=== PATIENT | male | born 1970 | race Caucasian/White ===

== ENCOUNTER 2018-09-22 17:31 | Inpatient (IN) | payer BC ==
[~2018-09-22] VITALS: Ht 188 cm; Wt 94.8 kg
[2018-09-22 18:10] VITALS: BP 116/81
[2018-09-22] MEDS ORDERED: guaiFENesin DM 200MG/20MG 10 ML SYRUP PO PRN (19:00)
[2018-09-22] MEDS ORDERED: ZOLPIDEM 5 MG TABLET. PO PRN (19:00)
[2018-09-22] MEDS ORDERED: OMEP40CA5 PO (19:14)
[2018-09-22] MEDS ORDERED: TRAM50TA PO (19:14)
[2018-09-22] MEDS ORDERED: METH500T7 PO (19:14)
[2018-09-22] MEDS ORDERED: BENZ-8 PO (19:14)
[2018-09-22] MEDS ORDERED: NABU500T PO (19:14)
[2018-09-22] MEDS ORDERED: IPRA3AMP29 NEB (19:14)
[2018-09-22] MEDS ORDERED: FEXO1TAB31 PO (19:14)
[2018-09-22] MEDS ORDERED: TRAZ-86 PO (19:14)
[2018-09-22] MEDS ORDERED: ALBU2.5V8 INH (19:14)
[2018-09-22 19:29] LABS: BASO # 0.1 x10^3/uL (0.0-0.2); BASO % 1 % (0-3); EOS # 1.4 x10^3/uL (0.0-0.7); EOS % 13 % (0-3); HEMATOCRIT 38.7 % (39.0-53.0); HEMOGLOBIN 13.2 g/dL (13.0-17.5); LYMPH # 1.3 x10^3/uL (1.0-4.8); LYMPH % 12 % (24-48); MEAN CORPUSCULAR HEMOGLOBIN 31 pg (25-35); MEAN CORPUSCULAR HGB CONC 34 g/dL (31-37); MEAN CORPUSCULAR VOLUME 91 fL (79-100); MONO # 0.8 x10^3/uL (0.0-1.1); MONO % 7 % (0-9); NEUT # 7.3 x10^3uL (1.8-7.7); NEUT % 67 % (31-73); PLATELET COUNT 326 x10^3/uL (140-400); RED BLOOD COUNT 4.27 x10^6/uL (4.30-5.70); WHITE BLOOD COUNT 10.9 x10^3/uL (4.0-11.0)
[2018-09-22] MEDS ORDERED: AZITHROMYCIN 250 MG TABLET. PO ONE (19:30)
[2018-09-22 20:40] LABS: ALBUMIN 2.7 g/dL (3.4-5.0); ALBUMIN/GLOBULIN RATIO 0.6 (1.0-1.7); CALCIUM 8.7 mg/dL (8.5-10.1); CREATININE 0.9 mg/dL (0.7-1.3); GFR 89.3; POTASSIUM 3.6 mmol/L (3.5-5.1); TOTAL BILIRUBIN 0.3 mg/dL (0.2-1.0); TOTAL PROTEIN 7.1 g/dL (6.4-8.2)
[2018-09-22] MEDS: IPRATRPIUM/ALBUTEROL 0.5/2.5MG 3 ML NEBU. NEB SCH (21:08)
[2018-09-22] MEDS ORDERED: BENZONATATE 100 MG CAPSULE. PO PRN (21:30)
[2018-09-22] MEDS ORDERED: traZODone 100 MG TABLET. PO SCH (21:30)
[2018-09-22] MEDS ORDERED: ALBUTEROL SULFATE 2.5 MG/3 ML NEBU. INH PRN (21:30)
[2018-09-22] MEDS: traZODone 100 MG TABLET. PO SCH (21:31)
[2018-09-22] MEDS: PANTOPRAZOLE 40 MG TABLET. PO SCH (21:31)
[2018-09-22 21:50] LABS: BACTERIA,URINE FEW /HPF (0-FEW); BILIRUBIN,URINE NEG (NEG); CLARITY,URINE HAZY; COLOR,URINE AMBER; GLUCOSE,URINE NEG (NEG); NITRITE,URINE NEG (NEG); RBC,URINE 0 /HPF (0-2); SQUAMOUS EPITHELIAL CELL,UR OCC /LPF; UROBILINOGEN,URINE 0.2 mg/dL (0.2 mg/dL); WBC,URINE 0 /HPF (0-4)
[2018-09-22] MEDS: HEPARIN for SUB-Q USE 5,000 UNIT/ML VIAL. SQ SCH (21:59)
[2018-09-22 23:05] VITALS: BP 101/61
[2018-09-23] MEDS: IV NORMAL SALINE 1,000ML 1,000 ML IV SCH ×3 (02:54→18:56)
[2018-09-23 05:35] VITALS: BP 103/66
[2018-09-23] MEDS: METHOCARBAMOL 500 MG TABLET PO SCH ×3 (05:47→21:28)
[2018-09-23] MEDS: IPRATRPIUM/ALBUTEROL 0.5/2.5MG 3 ML NEBU. NEB SCH ×4 (05:50→21:30)
[2018-09-23] MEDS: HEPARIN for SUB-Q USE 5,000 UNIT/ML VIAL. SQ SCH ×3 (05:51→21:25)
--- NOTE | 2018-09-23 06:11 | EKG ---
[address] [address] Test Date: 2018-09-23 Test Time: 06:01:30 Pat Name: MELANIE WINCHESTER Department: Room: 119 A Gender: M Apprentice Lineman Third Step: : 1970 Requested By: ALLISON DELGADO Order Number: [id number] Reading MD: Stefan Rose Measurements Intervals Muddy Rate: 105 P: 35 FL: 160 QRS: 31 QRSD: 74 T: -5 QT: 350 QTc: 467 Interpretive Statements SINUS TACHYCARDIA Electronically Signed On 10-16-2018 12:03:26 CDT by Stefan Rose
[2018-09-23 06:20] LABS: BASO # 0.2 x10^3/uL (0.0-0.2); BASO % 2 % (0-3); EOS # 1.4 x10^3/uL (0.0-0.7); EOS % 20 % (0-3); HEMATOCRIT 36.6 % (39.0-53.0); HEMOGLOBIN 12.6 g/dL (13.0-17.5); LYMPH # 1.4 x10^3/uL (1.0-4.8); LYMPH % 20 % (24-48); MEAN CORPUSCULAR HEMOGLOBIN 31 pg (25-35); MEAN CORPUSCULAR HGB CONC 34 g/dL (31-37); MEAN CORPUSCULAR VOLUME 90 fL (79-100); MONO # 0.6 x10^3/uL (0.0-1.1); MONO % 8 % (0-9); NEUT # 3.5 x10^3uL (1.8-7.7); NEUT % 49 % (31-73); PLATELET COUNT 304 x10^3/uL (140-400); RED BLOOD COUNT 4.05 x10^6/uL (4.30-5.70); RED CELL DISTRIBUTION WIDTH 12.6 % (11.5-14.5)
[2018-09-23 06:29] LABS: CALCIUM 8.2 mg/dL (8.5-10.1); CREATININE 0.9 mg/dL (0.7-1.3); GFR 89.3; POTASSIUM 3.8 mmol/L (3.5-5.1)
[2018-09-23] MEDS ORDERED: CONTRAST GIVEN MC PRN (06:45)
[2018-09-23] MEDS ORDERED: IOHEXOL 350 MG/ML 100 ML VIAL. IV ONE (07:00)
--- NOTE | 2018-09-23 07:45 | RAD ---
Chest, 2 views, 09/23/2018: HISTORY: Pneumonia No previous chest radiographs are available at this time for comparison purposes. The heart is within normal limits in size. There are patchy bilateral pulmonary opacities suggesting infiltrates and/or scarring. No pleural fluid is seen. A spinal stimulator lead extends into the lower thoracic spinal canal. IMPRESSION: Moderate patchy bilateral pulmonary infiltrates compatible with pneumonia. Electronically signed by: Zeke Gallagher MD (09/23/2018 7:42 AM) [facility]
[2018-09-23] MEDS ORDERED: IPRATRPIUM/ALBUTEROL 0.5/2.5MG 3 ML NEBU. NEB SCH (08:00)
--- NOTE | 2018-09-23 08:19 | RAD ---
Chest CTA History: Shortness of air for 3 weeks, elevated d-dimer Technique: After bolus of intravenous contrast, CT imaging was performed of the chest. Multiplanar reconstruction images to include MIP reconstruction images are submitted. Exposure: One or more of the following individualized dose reduction techniques were utilized for this examination: 1. Automated exposure control 2. Adjustment of the mA and/or kV according to patient size 3. Use of iterative reconstruction technique. Comparison: None Findings: [ ] No pulmonary embolism is identified. There is no pleural pericardial effusion or pneumothorax. There is moderate to severe emphysema. There are fairly prominent multifocal infiltrates of the lower lobes bilaterally somewhat greater on the left and also of the upper lobes greater on the left. There is bilateral hilar lymphadenopathy, largest right hilar node about 1.6 cm short axis dimension and on the left about 1.5 cm short axis dimension. There are some enlarged mediastinal nodes, largest left paratracheal node about 1.1 cm short axis dimension. Thoracic aortic caliber is within normal limits without intraluminal flap. There is probable hepatic steatosis. There is thoracic spinal stimulator lead terminating near T7-8. Impression: 1. No pulmonary embolism is identified. 2. There are multifocal infiltrates bilaterally for which short-term follow-up after treatment advised such as within 2 months. There is emphysema. 3. There is nonspecific bilateral hilar as well as mediastinal lymphadenopathy also for which attention on follow-up advised. Electronically signed by: Jesus Alberto Miller MD (09/23/2018 8:16 AM) [id number]
[2018-09-23] MEDS: predniSONE 20 MG TABLET PO SCH (08:42)
[2018-09-23] MEDS: CETIRIZINE HCL 10 MG TABLET PO SCH ×2 (08:43→21:28)
[2018-09-23] MEDS: LACTOBACILLUS RHAMNOSUS GG 1 CAPSULE. PO SCH ×2 (08:43→21:27)
[2018-09-23] MEDS: PANTOPRAZOLE 40 MG TABLET. PO SCH (08:43)
[2018-09-23] MEDS: PSEUDOEPHEDRINE ER 120 MG TABLET.ER. PO SCH ×2 (08:44→21:27)
[2018-09-23] MEDS: MELOXICAM 7.5 MG TABLET PO SCH (08:44)
[2018-09-23] MEDS: traMADol 50 MG TABLET PO PRN ×2 (08:59→17:17)
[2018-09-23] MEDS ORDERED: PIP/TAZO PER PHARMACY MC PRN (10:00)
[2018-09-23] MEDS ORDERED: PIPERACILLIN/TAZOBACTAM 4.5 GM in IV NORMAL SALINE 50ML 50 ML IV SCH ×2 (10:00→12:00)
[2018-09-23 10:45] VITALS: BP 107/71
[2018-09-23] MEDS ORDERED: VANCOMYCIN 2 GM in IV NORMAL SALINE 500ML 500 ML IV ONE (11:00)
[2018-09-23] MEDS: VANCOMYCIN PER PHARMACY MC PRN (12:42)
[2018-09-23 15:35] VITALS: BP 110/69
[2018-09-23] MEDS: VANCOMYCIN 1.5 GM in IV NORMAL SALINE 500ML 500 ML IV SCH (18:57)
[2018-09-23 19:12] VITALS: BP 108/65
[2018-09-23] MEDS ORDERED: AZITHROMYCIN 250 MG TABLET. PO SCH (21:00)
[2018-09-23] MEDS: PIPERACILLIN/TAZOBACTAM 4.5 GM in IV NORMAL SALINE 50ML 50 ML IV SCH (21:28)
[2018-09-23] MEDS: traZODone 100 MG TABLET. PO SCH (21:28)
[2018-09-23 22:47] VITALS: BP 105/70
[2018-09-24] MEDS: IPRATRPIUM/ALBUTEROL 0.5/2.5MG 3 ML NEBU. NEB SCH ×5 (01:33→19:28)
[2018-09-24] MEDS: PIPERACILLIN/TAZOBACTAM 4.5 GM in IV NORMAL SALINE 50ML 50 ML IV SCH ×4 (02:36→22:01)
[2018-09-24] MEDS: VANCOMYCIN 1.5 GM in IV NORMAL SALINE 500ML 500 ML IV SCH ×2 (04:11→11:00)
--- NOTE | 2018-09-24 04:19 | PN ---
DATE: 09/23/2018 SUBJECTIVE: The patient is resting fairly comfortably, although his pulse still has been running on the high side, approximately 115 or so. Oxygen saturation was 94%. Blood pressure is stable. The patient's labs are still not really demonstrative of the type of infection. This gentleman has a C-reactive protein, was elevated at 30. The procalcitonin is still pending. He failed an outpatient therapy for approximately almost 2 weeks with oral antibiotics before coming in. He works at the [employer] and consequently has been exposed to a wide variety of other disease causing agents. PHYSICAL EXAMINATION: GENERAL: Otherwise, the patient is alert and oriented. LUNGS: Diminished throughout, poor movement of air, but clear. CARDIOVASCULAR: Regular sinus rhythm, tachycardic. ABDOMEN: Protuberant, soft, nontender. NEUROLOGIC: Intact. IMPRESSION: Sepsis, pneumonia, unspecified etiology. PLAN: Continue to monitor the patient. Continue on IV antibiotic therapy, multilobar pneumonia for that matter. Mediastinal lymphadenopathy. Continue with the vancomycin and piperacillin for now. ALLISON DELGADO MD DR: JULIO/zehra JOB#: [id number] / [id number]
[2018-09-24 05:52] VITALS: BP 126/71
[2018-09-24] MEDS: METHOCARBAMOL 500 MG TABLET PO SCH ×3 (06:18→21:44)
[2018-09-24] MEDS: HEPARIN for SUB-Q USE 5,000 UNIT/ML VIAL. SQ SCH ×3 (06:18→22:05)
[2018-09-24] MEDS: IV NORMAL SALINE 1,000ML 1,000 ML IV SCH ×2 (06:18→11:50)
[2018-09-24] MEDS: CETIRIZINE HCL 10 MG TABLET PO SCH ×2 (08:29→21:46)
[2018-09-24] MEDS: MELOXICAM 7.5 MG TABLET PO SCH (08:29)
[2018-09-24] MEDS: LACTOBACILLUS RHAMNOSUS GG 1 CAPSULE. PO SCH ×2 (08:29→21:45)
[2018-09-24] MEDS: predniSONE 20 MG TABLET PO SCH (08:29)
[2018-09-24] MEDS: PANTOPRAZOLE 40 MG TABLET. PO SCH (08:29)
[2018-09-24] MEDS: traMADol 50 MG TABLET PO PRN ×2 (08:32→21:45)
[2018-09-24] MEDS: PSEUDOEPHEDRINE ER 120 MG TABLET.ER. PO SCH ×2 (08:33→21:00)
--- NOTE | 2018-09-24 10:12 | RAD ---
Chest, 2 views, 09/24/2018: HISTORY: Pneumonia Comparison is made to yesterday's study. The heart size is normal. Moderate patchy bilateral pulmonary infiltrates appear unchanged. There is underlying bullous emphysema. There is no evidence of pleural fluid or pneumothorax. A spinal stimulator lead extends into the lower thoracic spinal canal. IMPRESSION: 1. Emphysema. 2. Moderate unchanged patchy bilateral pulmonary infiltrates suggesting pneumonia. Electronically signed by: Zeke Gallagher MD (09/24/2018 10:09 AM) [facility]
[2018-09-24 10:40] VITALS: BP 119/76
[2018-09-24] MEDS: VANCOMYCIN PER PHARMACY MC PRN (13:46)
[2018-09-24] MEDS ORDERED: VANCOMYCIN 1.5 GM in IV NORMAL SALINE 500ML 500 ML IV SCH (15:00)
[2018-09-24 15:09] VITALS: BP 118/72
[2018-09-24 20:23] VITALS: BP 122/76
[2018-09-24] MEDS: traZODone 100 MG TABLET. PO SCH (21:45)
[2018-09-24 23:41] VITALS: BP 95/63
[2018-09-25] MEDS: IV NORMAL SALINE 1,000ML 1,000 ML IV SCH (00:27)
--- NOTE | 2018-09-25 03:19 | PN ---
DATE: 09/24/2018 SUBJECTIVE: A 48-year-old in with bilateral lobe pneumonia, feeling somewhat better, looks like combination of antibiotics has helped him. We will go ahead and continue to monitor him. He is going to have a PICC line placed and then we are going to go and have probably outpatient therapy for at least another week to 10 days. 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 OBJECTIVE: GENERAL: The patient is alert and oriented. He is more active. VITAL SIGNS: Blood pressure 120/70, respiratory rate 20, pulse is still over 100 to 110, temperature 98.1. HEENT: Head atraumatic, normocephalic. Eyes: PERRLA without jaundice. LUNGS: Diminished throughout, but improved. CARDIOVASCULAR: Regular sinus rhythm, tachycardic. ABDOMEN: Soft, nontender. NEUROLOGICAL: Intact. PLAN: We will go ahead and continue to monitor the patient accordingly. Continue with IV antibiotic therapy. IMPRESSION: Pneumonia, bilateral lobe maybe institutionally obtained. He does work in one of the [employer] and may have accumulated there. ALLISON DELGADO MD DR: JULIO/zehra JOB#: [id number] / [id number]
[2018-09-25] MEDS: PIPERACILLIN/TAZOBACTAM 4.5 GM in IV NORMAL SALINE 50ML 50 ML IV SCH ×2 (03:29→08:27)
[2018-09-25] MEDS: IPRATRPIUM/ALBUTEROL 0.5/2.5MG 3 ML NEBU. NEB SCH ×2 (04:54→10:52)
[2018-09-25] MEDS: METHOCARBAMOL 500 MG TABLET PO SCH (05:35)
[2018-09-25] MEDS: HEPARIN for SUB-Q USE 5,000 UNIT/ML VIAL. SQ SCH (05:35)
[2018-09-25 05:55] VITALS: BP 114/75
[2018-09-25] MEDS: PANTOPRAZOLE 40 MG TABLET. PO SCH (08:26)
[2018-09-25] MEDS: LACTOBACILLUS RHAMNOSUS GG 1 CAPSULE. PO SCH (08:26)
[2018-09-25] MEDS: CETIRIZINE HCL 10 MG TABLET PO SCH (08:27)
[2018-09-25] MEDS: MELOXICAM 7.5 MG TABLET PO SCH (08:27)
[2018-09-25] MEDS: PSEUDOEPHEDRINE ER 120 MG TABLET.ER. PO SCH (08:27)
[2018-09-25] MEDS: predniSONE 20 MG TABLET PO SCH (08:28)
[2018-09-25] MEDS ORDERED: PRED1TAB PO (09:57)
[2018-09-25] MEDS ORDERED: CEFE1VIA5 IJ (09:57)
[2018-09-25] MEDS ORDERED: CEFEPIME HCL 1 GM in IV NORMAL SALINE 50ML 50 ML IV ONE (10:30)
[2018-09-25] MEDS ORDERED: Influenza vaccine per PROTOCOL. MC PRN (10:30)
--- NOTE | 2018-09-30 12:32 | DS ---
DATE OF DISCHARGE: 09/25/2018 HOSPITAL COURSE: A 48-year-old male in with a problem of recurrent pneumonia who has been treated as an outpatient; however, he was unsuccessful. He continued to have problems and as a result of this, the patient was admitted to the hospital. He had bilateral lobe pneumonia and as a result of this, the patient was admitted to the hospital, given IV vancomycin and Zosyn. The patient made excellent recovery with those 2. He was running a temperature and a pulse of over 120 at times. He made good progress. He will follow up with a neurodiagnostic tech as well as making further evaluation on him as indicated. Otherwise, the patient made good progress. He will be discharged home. Follow up as an outpatient. IMPRESSION: Multi-lobe pneumonia, community acquired and sepsis, mediastinal lymphadenopathy. Continue with IV antibiotic therapy and make further evaluation on him as indicated per those results. ALLISON DELGADO MD DR: JULIO/zehra JOB#: [id number] / [id number]
== END 2018-09-25 11:25 | disposition home or self-care (01) | DRG 871 ==
LOC: 1 SOUTH 17:55
PROVIDERS: ADMIT Family Medicine; ATTEND Family Medicine
DX: A41.9 Sepsis, unspecified organism (principal); J18.1 Lobar pneumonia, unspecified organism
CPT/HCPCS: 36415; 71046; 71275; 80048; 80053; 80202; 81001; 83605; 84145; 85025; 85379; 86140; 86738; 87040; 93005; 94640; J0456; J0692; J0696; J1644; J2543; J3370; J7040; J7512; J7620; Q9967; J7030

== ENCOUNTER 2018-10-02 14:04 | Inpatient (IN) | payer BC ==
[~2018-10-02] VITALS: Ht 182.9 cm; Wt 98.6 kg
[~2018-10-02 14:04] MED LIST: ALBU2.5V8 INH; BENZ-8 PO; CEFE1VIA5 IJ; FEXO1TAB31 PO; IPRA3AMP29 NEB; METH500T7 PO; NABU500T PO; OMEP40CA5 PO; PRED1TAB PO; TRAM50TA PO; TRAZ-86 PO
[2018-10-02 14:26] VITALS: BP 134/88
[2018-10-02] MEDS ORDERED: IPRATRPIUM/ALBUTEROL 0.5/2.5MG 3 ML NEBU. ONE (14:36)
[2018-10-02] MEDS ORDERED: IV NORMAL SALINE 1,000ML 1,000 ML IV SCH ×2 (14:43→17:13)
[2018-10-02] MEDS ORDERED: ONDANSETRON PF 4 MG/2 ML VIAL. IV PRN (14:45)
[2018-10-02 14:55] LABS: BASO # 0.1 x10^3/uL (0.0-0.2); BASO % 1 % (0-3); EOS # 0.5 x10^3/uL (0.0-0.7); EOS % 4 % (0-3); HEMATOCRIT 39.7 % (39.0-53.0); HEMOGLOBIN 13.5 g/dL (13.0-17.5); LYMPH # 0.6 x10^3/uL (1.0-4.8); LYMPH % 5 % (24-48); MEAN CORPUSCULAR HEMOGLOBIN 31 pg (25-35); MEAN CORPUSCULAR HGB CONC 34 g/dL (31-37); MEAN CORPUSCULAR VOLUME 90 fL (79-100); MONO # 0.8 x10^3/uL (0.0-1.1); MONO % 6 % (0-9); NEUT # 11.6 x10^3uL (1.8-7.7); NEUT % 85 % (31-73); PLATELET COUNT 389 x10^3/uL (140-400); RED BLOOD COUNT 4.42 x10^6/uL (4.30-5.70); RED CELL DISTRIBUTION WIDTH 12.7 % (11.5-14.5); WHITE BLOOD COUNT 13.6 x10^3/uL (4.0-11.0)
[2018-10-02 15:10] LABS: ALBUMIN 2.5 g/dL (3.4-5.0); ALBUMIN/GLOBULIN RATIO 0.5 (1.0-1.7); CALCIUM 8.4 mg/dL (8.5-10.1); GFR 79.1; MAGNESIUM 1.9 mg/dL (1.8-2.4); POTASSIUM 3.3 mmol/L (3.5-5.1); TOTAL BILIRUBIN 0.4 mg/dL (0.2-1.0); TOTAL PROTEIN 7.9 g/dL (6.4-8.2)
[2018-10-02] MEDS ORDERED: PIP/TAZO PER PHARMACY MC PRN (15:30)
[2018-10-02] MEDS ORDERED: VANCOMYCIN PER PHARMACY MC PRN (15:30)
[2018-10-02] MEDS ORDERED: ELECTROLYTE (NON-ICU) PROTOCOL MC PRN (15:45)
[2018-10-02] MEDS ORDERED: POTASSIUM CHLORIDE 20 MEQ TABLET.ER. PO ONE (15:45)
[2018-10-02] MEDS: IV NORMAL SALINE 1,000ML 1,000 ML IV SCH ×2 (15:58→18:30)
[2018-10-02] MEDS: ACETAMINOPHEN 325 MG TABLET PO PRN (15:59)
[2018-10-02] MEDS ORDERED: VANCOMYCIN 2 GM in IV NORMAL SALINE 500ML 500 ML IV ONE (16:00)
[2018-10-02] MEDS ORDERED: ALBUTEROL SULFATE 2.5 MG/3 ML NEBU. NEB PRN (16:00)
[2018-10-02] MEDS ORDERED: traMADol 50 MG TABLET PO PRN ×2 (16:00→17:45)
[2018-10-02] MEDS: methylPREDNISolone SOD SUCC PF 125 MG/2 ML VIAL. IV SCH ×2 (16:10→21:48)
--- NOTE | 2018-10-02 16:23 | RAD ---
CT of the chest without contrast, 10/02/2018: HISTORY: Follow-up pneumonia Noncontrast scans were obtained and compared to a study from 09/23/2018. There are large air-containing cysts in both lungs compatible with emphysema. There are moderate patchy bilateral pulmonary infiltrates represent a combination of airspace and interstitial disease. These pulmonary opacities have progressed since 09/23/2018. The findings suggest worsening pneumonia. There is a probable underlying component of scarring. Mild bilateral hilar and mediastinal adenopathy appears unchanged. The heart size is normal. There is no evidence of pleural fluid. A linear radiopacity in the thoracic spinal canal probably represents a spinal stimulator lead. There are mild scattered degenerative changes in the spine. IMPRESSION: 1. Worsening moderate patchy bilateral pulmonary infiltrates superimposed upon emphysema. 2. Unchanged mild mediastinal and bilateral hilar adenopathy. PQRS Compliance Statement: One or more of the following individualized dose reduction techniques were utilized for this examination: 1. Automated exposure control 2. Adjustment of the mA and/or kV according to patient size 3. Use of iterative reconstruction technique Electronically signed by: Zeke Gallagher MD (10/02/2018 4:19 PM) [facility]
[2018-10-02] MEDS: VANCOMYCIN PER PHARMACY MC PRN (16:28)
[2018-10-02] MEDS: IPRATRPIUM/ALBUTEROL 0.5/2.5MG 3 ML NEBU. NEB SCH ×2 (16:54→20:19)
[2018-10-02] MEDS ORDERED: NABUMETONE 500 MG PO SCH (17:00)
[2018-10-02] MEDS: PIPERACILLIN/TAZOBACTAM 4.5 GM in IV NORMAL SALINE 50ML 50 ML IV SCH (17:25)
[2018-10-02 19:38] VITALS: BP 138/83
[2018-10-02] MEDS: BENZONATATE 100 MG CAPSULE. PO PRN (20:04)
[2018-10-02] MEDS: LACTOBACILLUS RHAMNOSUS GG 1 CAPSULE. PO SCH (20:04)
[2018-10-02] MEDS: traZODone 100 MG TABLET. PO SCH (20:05)
[2018-10-02] MEDS ORDERED: CETIRIZINE HCL 10 MG TABLET PO SCH (21:00)
[2018-10-02] MEDS ORDERED: PSEUDOEPHEDRINE ER 120 MG TABLET.ER. PO SCH (21:00)
[2018-10-02] MEDS: HEPARIN for SUB-Q USE 5,000 UNIT/ML VIAL. SQ SCH (21:43)
[2018-10-02] MEDS: METHOCARBAMOL 500 MG TABLET PO SCH (21:44)
[2018-10-02 22:14] VITALS: BP 124/81
[2018-10-03] MEDS: VANCOMYCIN 1.5 GM in IV NORMAL SALINE 500ML 500 ML IV SCH ×2 (03:27→15:58)
[2018-10-03] MEDS: methylPREDNISolone SOD SUCC PF 125 MG/2 ML VIAL. IV SCH ×2 (05:08→20:31)
[2018-10-03] MEDS: PIPERACILLIN/TAZOBACTAM 4.5 GM in IV NORMAL SALINE 50ML 50 ML IV SCH ×5 (05:09→17:12)
[2018-10-03] MEDS: METHOCARBAMOL 500 MG TABLET PO SCH ×3 (05:09→21:29)
[2018-10-03] MEDS: HEPARIN for SUB-Q USE 5,000 UNIT/ML VIAL. SQ SCH ×3 (05:10→21:30)
[2018-10-03 05:45] VITALS: BP 109/69
[2018-10-03] MEDS: IPRATRPIUM/ALBUTEROL 0.5/2.5MG 3 ML NEBU. NEB SCH ×4 (06:02→20:04)
[2018-10-03] MEDS: BENZONATATE 100 MG CAPSULE. PO PRN ×3 (06:07→21:31)
[2018-10-03 06:27] LABS: BGAS PH 7.47 (7.35-7.46)
[2018-10-03 06:33] LABS: BASO % 0 % (0-3); EOS % 0 % (0-3); HEMATOCRIT 36.4 % (39.0-53.0); HEMOGLOBIN 12.4 g/dL (13.0-17.5); LYMPH # 0.9 x10^3/uL (1.0-4.8); LYMPH % 8 % (24-48); MEAN CORPUSCULAR HEMOGLOBIN 31 pg (25-35); MEAN CORPUSCULAR HGB CONC 34 g/dL (31-37); MEAN CORPUSCULAR VOLUME 90 fL (79-100); MONO # 0.6 x10^3/uL (0.0-1.1); MONO % 5 % (0-9); NEUT # 10.5 x10^3uL (1.8-7.7); NEUT % 87 % (31-73); PLATELET COUNT 368 x10^3/uL (140-400); RED BLOOD COUNT 4.03 x10^6/uL (4.30-5.70)
[2018-10-03 06:50] LABS: ALBUMIN 2.1 g/dL (3.4-5.0); ALBUMIN/GLOBULIN RATIO 0.4 (1.0-1.7); CALCIUM 8.2 mg/dL (8.5-10.1); CREATININE 0.9 mg/dL (0.7-1.3); GFR 89.3; POTASSIUM 3.9 mmol/L (3.5-5.1); TOTAL BILIRUBIN 0.3 mg/dL (0.2-1.0); TOTAL PROTEIN 7.2 g/dL (6.4-8.2)
[2018-10-03] MEDS: MELOXICAM 7.5 MG TABLET PO SCH (08:16)
[2018-10-03] MEDS: CETIRIZINE HCL 10 MG TABLET PO SCH (08:16)
[2018-10-03] MEDS: PANTOPRAZOLE 40 MG TABLET. PO SCH (08:16)
[2018-10-03] MEDS: LACTOBACILLUS RHAMNOSUS GG 1 CAPSULE. PO SCH ×2 (08:16→20:29)
[2018-10-03] MEDS: PSEUDOEPHEDRINE ER 120 MG TABLET.ER. PO PRN (08:31)
[2018-10-03] MEDS: IV NORMAL SALINE 1,000ML 1,000 ML IV SCH (08:41)
[2018-10-03] MEDS: traMADol 50 MG TABLET PO PRN ×2 (08:58→21:28)
[2018-10-03] MEDS ORDERED: NON FORMULARY ITEM (Fexofenadine/Pseudoephedrine (Allegra-D 24 Hour Tablet) 1 TAB) PO SCH (09:00)
[2018-10-03 10:39] VITALS: BP 128/78
[2018-10-03] MEDS ORDERED: predniSONE 20 MG TABLET PO SCH (11:00)
[2018-10-03] MEDS ORDERED: IPRATRPIUM/ALBUTEROL 0.5/2.5MG 3 ML NEBU. NEB SCH (12:00)
--- NOTE | 2018-10-03 12:38 | PN ---
DATE: 10/03/2018 SUBJECTIVE: A 48-year-old gentleman in with bilateral lobe pneumonia relapse. He had been on cefepime as an outpatient; however, got increasingly worse. He was brought back and he is doing better in the last 24 hours, transfer him to his core fitter in [place], Dr. Berry. Family decided not to be transferred any case, he is doing better. OBJECTIVE: VITAL SIGNS: Blood pressure 128/70, respiratory rate 20, pulse 103. He is presently afebrile. Did have a low-grade temperature of 99. Pulses come down from 120, so he has improved. His oxygen saturation is moved up from 90% to anywhere up to 96% on room air, feeding breathing treatments, low dose prednisone as well as some obviously vancomycin and Zosyn, which seems to be helping much better than they should. GENERAL: Not in any case, the patient is alert and oriented, says he is feeling better. LUNGS: Diminished, somewhat expiratory wheezes, but markedly improved from where they were. NEUROLOGIC: Alert and oriented. CARDIOVASCULAR: Tachycardic, but stable. ABDOMEN: Soft, nontender. The patient denies any chest pain or shortness of breath presently. He does have dyspnea when he does walk. I will continue to monitor. IMPRESSION: Sepsis, bilateral lobe pneumonia, emphysema, mediastinal lymphadenopathy. Told family will need to follow up with his core fitter eventually even if it as an outpatient. Again, they refused to be transferred. ALLISON DELGADO MD DR: JULIO/zehra JOB#: [id number] / [id number]
[2018-10-03 15:50] VITALS: BP 128/75
[2018-10-03 19:30] VITALS: BP 144/78
[2018-10-03] MEDS: ACETAMINOPHEN 325 MG TABLET PO PRN (20:29)
[2018-10-03] MEDS: traZODone 100 MG TABLET. PO SCH (20:30)
[2018-10-03 23:38] VITALS: BP 129/78
[2018-10-04] MEDS: PIPERACILLIN/TAZOBACTAM 4.5 GM in IV NORMAL SALINE 50ML 50 ML IV SCH ×4 (00:08→17:18)
[2018-10-04 04:29] LABS: VANC TR 7.6 mcg/mL (10.0-20.0)
[2018-10-04] MEDS: VANCOMYCIN 1.5 GM in IV NORMAL SALINE 500ML 500 ML IV SCH ×3 (04:30→21:07)
[2018-10-04] MEDS: IPRATRPIUM/ALBUTEROL 0.5/2.5MG 3 ML NEBU. NEB SCH ×4 (04:53→19:35)
[2018-10-04] MEDS: METHOCARBAMOL 500 MG TABLET PO SCH ×3 (06:05→21:39)
[2018-10-04] MEDS: HEPARIN for SUB-Q USE 5,000 UNIT/ML VIAL. SQ SCH ×3 (06:06→21:40)
[2018-10-04] MEDS: traMADol 50 MG TABLET PO PRN ×2 (06:27→18:06)
[2018-10-04] MEDS: IV NORMAL SALINE 1,000ML 1,000 ML IV SCH ×2 (06:28→20:50)
[2018-10-04 06:42] VITALS: BP 131/85
[2018-10-04] MEDS: CETIRIZINE HCL 10 MG TABLET PO SCH (07:39)
[2018-10-04] MEDS: BENZONATATE 100 MG CAPSULE. PO PRN ×2 (07:39→18:06)
[2018-10-04] MEDS: PANTOPRAZOLE 40 MG TABLET. PO SCH (07:39)
[2018-10-04] MEDS: methylPREDNISolone SOD SUCC PF 125 MG/2 ML VIAL. IV SCH ×2 (07:39→21:08)
[2018-10-04] MEDS: PSEUDOEPHEDRINE ER 120 MG TABLET.ER. PO PRN (07:39)
[2018-10-04] MEDS: MELOXICAM 7.5 MG TABLET PO SCH (07:39)
[2018-10-04] MEDS: LACTOBACILLUS RHAMNOSUS GG 1 CAPSULE. PO SCH ×2 (07:40→21:05)
[2018-10-04] MEDS: VANCOMYCIN PER PHARMACY MC PRN (07:47)
[2018-10-04] MEDS ORDERED: IOHEXOL 350 MG/ML 100 ML VIAL. IV ONE (09:45)
[2018-10-04 11:08] VITALS: BP 125/77
--- NOTE | 2018-10-04 13:48 | RAD ---
CTA OF THE CHEST WITH AND WITHOUT CONTRAST Clinical indications: Shortness of breath. Positive d-dimer. Technique: Noncontrast axial localizer was performed. After IV infusion of 90 cc of Omnipaque 350, helical CT scanning of the chest was performed using the CT pulmonary embolism protocol. A coronal MIP reconstruction was generated. PQRS compliance Statement One or more of the following individualized dose reduction techniques were utilized for this study: 1. Automated exposure control 2. Adjustment of the mA and/or kV according to patient size 3. Use of iterative reconstruction technique Comparison: Chest CTA dated September 23, 2018. Chest CT without contrast dated October 02, 2018 Findings: No pulmonary embolism is evident. No focal aneurysmal dilatation or dissection of the thoracic aorta is seen. Mediastinal and hilar lymph nodes are again evident and are unchanged. The heart size is normal. No pericardial effusion is seen. Small left-sided pleural effusion is now evident. No right-sided pleural effusion is seen. Again seen are bilateral confluent lung infiltrates which have not changed significantly from October 02, 2018. Bullous emphysema is seen bilaterally. No pneumothorax is seen. Proximal bronchial tree is patent. No adrenal mass is evident. No lytic process is seen. IMPRESSION: No pulmonary embolism. No change in consolidative lung infiltrates bilaterally since October 02, 2018. There is a new small left-sided pleural effusion. No change in the mediastinal or hilar lymph nodes. Electronically signed by: Otoniel Murphy MD (10/04/2018 1:45 PM) [facility]
[2018-10-04] MEDS ORDERED: CONTRAST GIVEN MC PRN (14:45)
[2018-10-04 14:48] VITALS: BP 148/89
--- NOTE | 2018-10-04 17:43 | PN ---
DATE: 10/04/2018 SUBJECTIVE: A 48-year-old male with bilateral lobe pneumonia, refused to be transferred out to the situation noted in [place] with his flight communications operator, but he is doing much better this morning, feels better. The patient's sed rate was about 100/100. He continues to make good progress. He is afebrile, presently bringing up green mucus, sputum cultures are still pending. Hopefully, we can get a good culture on that. OBJECTIVE: VITAL SIGNS: Blood pressure 130/80, respiratory rate 20, pulse 85, oxygen saturation anywhere from 91-98%. The patient is receiving breathing treatments. GENERAL: Alert and oriented, much stronger. LUNGS: Show expiratory wheezes occasionally squeak. CARDIOVASCULAR: Regular sinus rhythm. ABDOMEN: Soft, nontender. EXTREMITIES: No clubbing, cyanosis or edema. NEUROLOGIC: The patient is alert and oriented x 3. Discussed with him and his . IMPRESSION: Bilateral lobe pneumonia, positive D-dimer. PLAN: We will go ahead and do a CTA just to be on the safe side, make further evaluation on his pneumonia of unspecified etiology as well as community-acquired bilateral lobe pneumonia and dyspnea. ALLISON DELGADO MD DR: JULIO/zehra JOB#: [id number] / [id number]
[2018-10-04 19:10] VITALS: BP 132/77
[2018-10-04] MEDS: traZODone 100 MG TABLET. PO SCH (21:05)
[2018-10-04] MEDS: ACETAMINOPHEN 325 MG TABLET PO PRN (21:05)
[2018-10-04 22:51] VITALS: BP 122/73
[2018-10-05] MEDS: PIPERACILLIN/TAZOBACTAM 4.5 GM in IV NORMAL SALINE 50ML 50 ML IV SCH ×5 (01:08→23:27)
[2018-10-05] MEDS: traMADol 50 MG TABLET PO PRN ×3 (01:19→20:25)
[2018-10-05] MEDS: VANCOMYCIN 1.5 GM in IV NORMAL SALINE 500ML 500 ML IV SCH ×3 (04:48→20:22)
[2018-10-05] MEDS: IPRATRPIUM/ALBUTEROL 0.5/2.5MG 3 ML NEBU. NEB SCH ×4 (04:56→20:16)
[2018-10-05 05:00] LABS: VANC TR 17.2 mcg/mL (10.0-20.0)
[2018-10-05 05:30] VITALS: BP 127/86
[2018-10-05] MEDS: HEPARIN for SUB-Q USE 5,000 UNIT/ML VIAL. SQ SCH ×3 (06:17→20:39)
[2018-10-05] MEDS: METHOCARBAMOL 500 MG TABLET PO SCH ×3 (06:17→20:25)
[2018-10-05] MEDS: LACTOBACILLUS RHAMNOSUS GG 1 CAPSULE. PO SCH ×2 (08:33→20:23)
[2018-10-05] MEDS: CETIRIZINE HCL 10 MG TABLET PO SCH (08:33)
[2018-10-05] MEDS: MELOXICAM 7.5 MG TABLET PO SCH (08:33)
[2018-10-05] MEDS: PANTOPRAZOLE 40 MG TABLET. PO SCH (08:33)
[2018-10-05] MEDS: methylPREDNISolone SOD SUCC PF 125 MG/2 ML VIAL. IV SCH ×2 (08:34→20:23)
[2018-10-05] MEDS: BENZONATATE 100 MG CAPSULE. PO PRN ×3 (08:38→20:23)
[2018-10-05] MEDS: IV NORMAL SALINE 1,000ML 1,000 ML IV SCH ×2 (10:10→20:25)
[2018-10-05] MEDS: VANCOMYCIN PER PHARMACY MC PRN (10:59)
[2018-10-05 11:00] VITALS: BP 141/89
[2018-10-05 16:37] VITALS: BP 151/87
[2018-10-05 19:09] VITALS: BP 159/92
[2018-10-05] MEDS: traZODone 100 MG TABLET. PO SCH (20:25)
[2018-10-05 23:32] VITALS: BP 149/86
--- NOTE | 2018-10-06 00:35 | PN ---
DATE: SUBJECTIVE: Multilobar pneumonia, severe emphysema, CTA was negative for clot, has mediastinal and hilar lymphadenopathy, bullous emphysema. OBJECTIVE: VITAL SIGNS: Blood pressure 127/86, respirations 22, pulse 80, good oxygen saturation anywhere from 91% to 92%. The patient says he is feeling better, walking, but still very weak overall, says his pneumonia still is there. Sputums are still pending. The patient has had a relapse before, once at home and IV antibiotic therapy. We will continue to monitor him accordingly here. For now, continue with IV antibiotic. He is on Zosyn and vancomycin. GENERAL: The patient is alert and oriented. LUNGS: Diminished, but clear than they have been. CARDIOVASCULAR: Regular sinus rhythm, S1, S2. ABDOMEN: Soft, nontender. We will go ahead and continue to monitor accordingly. Continue on IV antibiotic therapy. IMPRESSION: Bilateral lobe pneumonia, organism unspecified, otherwise bullous emphysema, mediastinal lymphadenopathy. PLAN: Continue with IV antibiotic therapy, aggressive pulmonary toilet. ALLISON DELGADO MD DR: JULIO/zehra JOB#: [id number] / [id number]
[2018-10-06] MEDS: PIPERACILLIN/TAZOBACTAM 4.5 GM in IV NORMAL SALINE 50ML 50 ML IV SCH ×2 (04:44→12:23)
[2018-10-06] MEDS: BENZONATATE 100 MG CAPSULE. PO PRN ×2 (04:44→13:29)
[2018-10-06] MEDS: METHOCARBAMOL 500 MG TABLET PO SCH ×2 (04:45→13:29)
[2018-10-06] MEDS: HEPARIN for SUB-Q USE 5,000 UNIT/ML VIAL. SQ SCH ×2 (04:46→13:37)
[2018-10-06 05:03] LABS: VANC TR 18.3 mcg/mL (10.0-20.0)
[2018-10-06 05:19] VITALS: BP 138/86
[2018-10-06] MEDS: VANCOMYCIN 1.5 GM in IV NORMAL SALINE 500ML 500 ML IV SCH ×2 (05:27→13:29)
[2018-10-06] MEDS: IPRATRPIUM/ALBUTEROL 0.5/2.5MG 3 ML NEBU. NEB SCH ×2 (05:31→09:18)
[2018-10-06] MEDS: methylPREDNISolone SOD SUCC PF 125 MG/2 ML VIAL. IV SCH (08:18)
[2018-10-06] MEDS: CETIRIZINE HCL 10 MG TABLET PO SCH (08:21)
[2018-10-06] MEDS: MELOXICAM 7.5 MG TABLET PO SCH (08:22)
[2018-10-06] MEDS: PANTOPRAZOLE 40 MG TABLET. PO SCH (08:22)
[2018-10-06] MEDS: traMADol 50 MG TABLET PO PRN (08:22)
[2018-10-06] MEDS: LACTOBACILLUS RHAMNOSUS GG 1 CAPSULE. PO SCH (08:23)
[2018-10-06] MEDS ORDERED: FUROSEMIDE 40 MG/4 ML VIAL IVP ONE (08:45)
[2018-10-06 09:10] LABS: CALCIUM 8.5 mg/dL (8.5-10.1); CREATININE 1.1 mg/dL (0.7-1.3); GFR 70.9; POTASSIUM 3.9 mmol/L (3.5-5.1)
[2018-10-06 09:23] LABS: BASO % 0 % (0-3); EOS % 0 % (0-3); HEMATOCRIT 36.2 % (39.0-53.0); HEMOGLOBIN 12.1 g/dL (13.0-17.5); LYMPH # 1.3 x10^3/uL (1.0-4.8); LYMPH % 9 % (24-48); MEAN CORPUSCULAR HEMOGLOBIN 30 pg (25-35); MEAN CORPUSCULAR HGB CONC 33 g/dL (31-37); MEAN CORPUSCULAR VOLUME 91 fL (79-100); MONO # 0.5 x10^3/uL (0.0-1.1); MONO % 4 % (0-9); NEUT % 87 % (31-73); PLATELET COUNT 385 x10^3/uL (140-400); RED BLOOD COUNT 3.99 x10^6/uL (4.30-5.70); RED CELL DISTRIBUTION WIDTH 13.3 % (11.5-14.5); WHITE BLOOD COUNT 13.8 x10^3/uL (4.0-11.0)
[2018-10-06 09:39] VITALS: BP 135/83
[2018-10-06] MEDS ORDERED: FLUCONAZOLE 100 MG TABLET. PO SCH (10:00)
--- NOTE | 2018-10-06 12:11 | RAD ---
Portable chest, 10/06/2018: HISTORY: Shortness of breath Comparison is made to a study from 09/24/2018. The heart is within normal limits in size. There are moderate patchy bilateral pulmonary infiltrates. These have worsened since the previous study, underlying emphysematous bullae are noted. There is no evidence of significant pleural fluid or pneumothorax. IMPRESSION: 1. Emphysema. 2. Worsening bilateral pulmonary infiltrates compatible with pneumonia. Electronically signed by: Zeke Gallagher MD (10/06/2018 12:08 PM) [facility]
--- NOTE | 2018-10-13 16:27 | DS ---
DATE OF DISCHARGE: 10/06/2018 HOSPITAL COURSE: A 48-year-old male with history of bilateral lobe pneumonia, emphysema, mediastinal lymphadenopathy. The patient refused to be transferred at this time. We treated with IV antibiotic therapy and bolus for bullous emphysema, given aggressive pulmonary toilet. The patient otherwise still continued to have this bilateral lobe infiltrate compatible with pneumonia and he eventually agreed to be transferred down to [place] with oil and gas specialist to evaluate him and make further evaluation on him. His sputum specimens showed the element of as well as some yeast in the sputum. He was treated with Diflucan and he was on Zosyn and Levaquin, but in any case, he was transferred down to Dr. Khan's practice. He was transferred by EMS. IMPRESSION: Bilateral lobe pneumonia, acute respiratory distress, bilateral emphysematous bullae, dyspnea. The patient will be discharged and transferred down to the [place] facility. ALLISON DELGADO MD DR: JULIO/zehra JOB#: [id number] / [id number]
== END 2018-10-06 14:05 | disposition short-term general hospital (02) | DRG 871 ==
LOC: 1 SOUTH 14:04
PROVIDERS: ADMIT Family Medicine; ATTEND Family Medicine
DX: A41.9 Sepsis, unspecified organism (principal); J18.1 Lobar pneumonia, unspecified organism; J43.9 Emphysema, unspecified; Z79.899 Other long term (current) drug therapy; Z88.8 Allergy status to other drugs, medicaments and biological substances; R06.03 Acute respiratory distress; R59.0 Localized enlarged lymph nodes
CPT/HCPCS: 36415; 71045; 71250; 71275; 80048; 80053; 80202; 82803; 83605; 83735; 83880; 84145; 85025; 85379; 85651; 86738; 87040; 87070; 87205; 94640; J1644; J1940; J2543; J2930; J3370; J7040; J7613; J7620; Q9967; J7030